=== PATIENT | female | born 1940 | race Caucasian/White ===

== ENCOUNTER → 2017-01-12 | Outpatient (CLI) | payer MEDICARE, OTHER ==
[~2017-01-12] VITALS: Ht 162.6 cm; Wt 53.5 kg
[~2017-01-12] MED LIST: ALBU8.5H IH; ALEN70TA48 PO; ATEN25 PO; AUD NEB; BENZ-26 PO; BUPR-47 PO; CENTRUM SILVER PO; CRAN500C3 PO; DABI75CA3 PO; DIVA250T45 PO; DSS100 PO; GABA-529 PO; LORA1TAB3 PO; MONT10TA21 PO; NITR100C PO; OMEP20 PO; PHEN50TA2 PO; PHENY100 PO; SOLI5 PO; TEMAZEPAM PO; TRAVZOS OU
[2017-01-12 11:08] VITALS: BP 125/58
== END | disposition home or self-care (01) ==
LOC: SRCNTR 11:03
PROVIDERS: ATTEND Internal Medicine Critical Care Medicine
DX: I10 Essential (primary) hypertension (principal); J44.1 Chronic obstructive pulmonary disease with (acute) exacerbation; R22.2 Localized swelling, mass and lump, trunk; F32.9 Major depressive disorder, single episode, unspecified; G40.101 Localization-related (focal) (partial) symptomatic epilepsy and epileptic syndromes with simple partial seizures, not intractable, with status epilepticus; C85.80 Other specified types of non-Hodgkin lymphoma, unspecified site; Z86.718 Personal history of other venous thrombosis and embolism; Z85.72 Personal history of non-Hodgkin lymphomas
CPT/HCPCS: G0463

== ENCOUNTER → 2017-05-13 | Outpatient (CLI) | payer MEDICARE, OTHER ==
[~2017-05-13] VITALS: Ht 162.6 cm; Wt 52.6 kg
[~2017-05-13] MED LIST changes: -PHEN50TA2 PO
[2017-05-13 12:36] VITALS: BP 112/75
== END | disposition home or self-care (01) ==
LOC: SRCNTR 12:17
PROVIDERS: ATTEND Internal Medicine Critical Care Medicine
DX: I10 Essential (primary) hypertension (principal); J44.1 Chronic obstructive pulmonary disease with (acute) exacerbation; F32.9 Major depressive disorder, single episode, unspecified; R22.2 Localized swelling, mass and lump, trunk; C85.80 Other specified types of non-Hodgkin lymphoma, unspecified site; G40.101 Localization-related (focal) (partial) symptomatic epilepsy and epileptic syndromes with simple partial seizures, not intractable, with status epilepticus; Z79.01 Long term (current) use of anticoagulants; E27.8 Other specified disorders of adrenal gland; Z85.72 Personal history of non-Hodgkin lymphomas
CPT/HCPCS: G0463

== ENCOUNTER → 2017-06-30 | Outpatient (CLI) | payer MEDICARE, OTHER ==
[~2017-06-30] VITALS: Ht 162.6 cm; Wt 53.5 kg
[~2017-06-30] MED LIST changes: -ALBU8.5H IH; +ALBU8.5H8 IH; -ATEN25 PO; +ATEN25TA PO; -BENZ-26 PO; +BENZ-51 PO
[2017-06-30 11:19] VITALS: BP 134/69
== END | disposition home or self-care (01) ==
LOC: SRCNTR 10:59
PROVIDERS: ATTEND Internal Medicine Critical Care Medicine
DX: I10 Essential (primary) hypertension (principal); C85.80 Other specified types of non-Hodgkin lymphoma, unspecified site; G40.101 Localization-related (focal) (partial) symptomatic epilepsy and epileptic syndromes with simple partial seizures, not intractable, with status epilepticus; F32.9 Major depressive disorder, single episode, unspecified; R22.2 Localized swelling, mass and lump, trunk; J44.1 Chronic obstructive pulmonary disease with (acute) exacerbation; Z88.0 Allergy status to penicillin
CPT/HCPCS: G0463

== ENCOUNTER → 2017-09-19 | Outpatient (CLI) | payer MEDICARE, OTHER ==
[~2017-09-19] VITALS: Ht 162.6 cm; Wt 53.0 kg
[2017-09-19 11:03] VITALS: BP 139/67
== END | disposition home or self-care (01) ==
LOC: SRCNTR 10:55
PROVIDERS: ATTEND Internal Medicine Critical Care Medicine
DX: J44.1 Chronic obstructive pulmonary disease with (acute) exacerbation (principal); I10 Essential (primary) hypertension; C85.80 Other specified types of non-Hodgkin lymphoma, unspecified site; G40.101 Localization-related (focal) (partial) symptomatic epilepsy and epileptic syndromes with simple partial seizures, not intractable, with status epilepticus; F32.9 Major depressive disorder, single episode, unspecified; R22.2 Localized swelling, mass and lump, trunk
CPT/HCPCS: G0463

== ENCOUNTER → 2017-11-24 | Outpatient (CLI) | payer MEDICARE, OTHER ==
[~2017-11-24] VITALS: Ht 162.6 cm; Wt 54.5 kg
[2017-11-24 11:02] VITALS: BP 137/66
== END | disposition home or self-care (01) ==
LOC: SRCNTR 10:52
PROVIDERS: ATTEND Internal Medicine Critical Care Medicine
DX: J44.1 Chronic obstructive pulmonary disease with (acute) exacerbation (principal); I10 Essential (primary) hypertension; F32.9 Major depressive disorder, single episode, unspecified; R22.2 Localized swelling, mass and lump, trunk; G40.101 Localization-related (focal) (partial) symptomatic epilepsy and epileptic syndromes with simple partial seizures, not intractable, with status epilepticus; C85.80 Other specified types of non-Hodgkin lymphoma, unspecified site; Z86.718 Personal history of other venous thrombosis and embolism
CPT/HCPCS: G0463

== ENCOUNTER → 2018-01-24 | Outpatient (CLI) | payer MEDICARE, OTHER ==
[~2018-01-24] VITALS: Ht 162.6 cm; Wt 54.0 kg
[2018-01-24 12:24] VITALS: BP 140/60
== END | disposition home or self-care (01) ==
LOC: SRCNTR 11:54
PROVIDERS: ATTEND Internal Medicine Critical Care Medicine
DX: J44.1 Chronic obstructive pulmonary disease with (acute) exacerbation (principal); I10 Essential (primary) hypertension; F32.9 Major depressive disorder, single episode, unspecified; C85.80 Other specified types of non-Hodgkin lymphoma, unspecified site; G40.101 Localization-related (focal) (partial) symptomatic epilepsy and epileptic syndromes with simple partial seizures, not intractable, with status epilepticus; R22.2 Localized swelling, mass and lump, trunk
CPT/HCPCS: G0463

== ENCOUNTER → 2019-10-03 | Outpatient (CLI) | payer MEDICARE, OTHER ==
[~2019-10-03] VITALS: Ht 162.6 cm; Wt 52.0 kg
[~2019-10-03] MED LIST changes: +ALEN70TA10 PO; -ALEN70TA48 PO; +AMIT25TA9 PO; +LORA-1000 PO; -LORA1TAB3 PO; +PHEN95TA44 PO; +TRAM50TA4 PO
[2019-10-03 10:25] VITALS: BP 131/87
== END | disposition home or self-care (01) ==
LOC: SRCNTR 10:24
PROVIDERS: ATTEND Internal Medicine Critical Care Medicine
DX: I10 Essential (primary) hypertension (principal); G40.909 Epilepsy, unspecified, not intractable, without status epilepticus; F32.9 Major depressive disorder, single episode, unspecified; Z85.79 Personal history of other malignant neoplasms of lymphoid, hematopoietic and related tissues; Z86.718 Personal history of other venous thrombosis and embolism; Z92.21 Personal history of antineoplastic chemotherapy
CPT/HCPCS: G0463

== ENCOUNTER → 2020-07-01 | Outpatient (CLI) | payer MEDICARE, OTHER ==
[~2020-07-01] VITALS: Ht 167.6 cm; Wt 54.4 kg
[~2020-07-01] MED LIST changes: -ALEN70TA10 PO; +ALEN70TA65 PO; +ATEN-73 PO; -ATEN25TA PO; -DABI75CA3 PO; +GABA-1216 PO; -GABA-529 PO; +MONT-35 PO; -MONT10TA21 PO
[2020-07-01 11:16] VITALS: BP 125/62
== END | disposition home or self-care (01) ==
LOC: SRCNTR 11:15
PROVIDERS: ATTEND Internal Medicine Critical Care Medicine
DX: C85.80 Other specified types of non-Hodgkin lymphoma, unspecified site (principal); G40.101 Localization-related (focal) (partial) symptomatic epilepsy and epileptic syndromes with simple partial seizures, not intractable, with status epilepticus; I10 Essential (primary) hypertension; F32.9 Major depressive disorder, single episode, unspecified; R22.2 Localized swelling, mass and lump, trunk; J44.1 Chronic obstructive pulmonary disease with (acute) exacerbation
CPT/HCPCS: G0463; Z7500

== ENCOUNTER → 2020-09-17 | Outpatient (CLI) | payer MEDICARE, OTHER ==
[~2020-09-17] VITALS: Ht 167.6 cm; Wt 57.0 kg
[2020-09-17 11:14] VITALS: BP 120/59
== END | disposition home or self-care (01) ==
LOC: SRCNTR 10:44
PROVIDERS: ATTEND Internal Medicine Critical Care Medicine
DX: C85.80 Other specified types of non-Hodgkin lymphoma, unspecified site (principal); G40.101 Localization-related (focal) (partial) symptomatic epilepsy and epileptic syndromes with simple partial seizures, not intractable, with status epilepticus; I10 Essential (primary) hypertension; J44.1 Chronic obstructive pulmonary disease with (acute) exacerbation; R22.2 Localized swelling, mass and lump, trunk; F32.9 Major depressive disorder, single episode, unspecified
CPT/HCPCS: G0463

== ENCOUNTER → 2021-01-29 | Outpatient (CLI) | payer MEDICARE, OTHER ==
[~2021-01-29] MED LIST changes: -BENZ-51 PO; +BENZ-70 PO; -BUPR-47 PO; +BUPR-49 PO
[2021-01-29 10:43] VITALS: BP 141/87
== END | disposition home or self-care (01) ==
LOC: SRCNTR 10:17
PROVIDERS: ATTEND Internal Medicine Critical Care Medicine
DX: C85.80 Other specified types of non-Hodgkin lymphoma, unspecified site (principal); G40.101 Localization-related (focal) (partial) symptomatic epilepsy and epileptic syndromes with simple partial seizures, not intractable, with status epilepticus; I10 Essential (primary) hypertension; F32.9 Major depressive disorder, single episode, unspecified; J44.1 Chronic obstructive pulmonary disease with (acute) exacerbation; R91.8 Other nonspecific abnormal finding of lung field; Z79.899 Other long term (current) drug therapy; Z88.0 Allergy status to penicillin; Z88.8 Allergy status to other drugs, medicaments and biological substances; Z98.890 Other specified postprocedural states
CPT/HCPCS: G0463; Z7500

== ENCOUNTER → 2021-05-19 | Outpatient (CLI) | payer MEDICARE ==
[~2021-05-19] VITALS: Ht 162.6 cm; Wt 55.2 kg
[~2021-05-19] MED LIST changes: +TRAV2.5D7 OU; -TRAVZOS OU
[2021-05-19 11:56] VITALS: BP 129/61
== END | disposition home or self-care (01) ==
LOC: SRCNTR 10:51
PROVIDERS: ATTEND Internal Medicine Critical Care Medicine
DX: C88.4 Extranodal marginal zone B-cell lymphoma of mucosa-associated lymphoid tissue [MALT-lymphoma] (principal); I10 Essential (primary) hypertension; J44.9 Chronic obstructive pulmonary disease, unspecified; R91.1 Solitary pulmonary nodule; F32.9 Major depressive disorder, single episode, unspecified
CPT/HCPCS: G0463

== ENCOUNTER → 2021-12-15 | Outpatient (CLI) | payer MEDICARE ==
[~2021-12-15] VITALS: Ht 165.1 cm; Wt 54.2 kg
[2021-12-15 11:26] VITALS: BP 137/55
== END | disposition home or self-care (01) ==
LOC: SRCNTR 10:37
PROVIDERS: ATTEND Internal Medicine Critical Care Medicine
DX: I10 Essential (primary) hypertension (principal); M54.50 Low back pain, unspecified; J44.1 Chronic obstructive pulmonary disease with (acute) exacerbation; F32.A Depression, unspecified; R91.8 Other nonspecific abnormal finding of lung field; R56.9 Unspecified convulsions; C88.4 Extranodal marginal zone B-cell lymphoma of mucosa-associated lymphoid tissue [MALT-lymphoma]
CPT/HCPCS: G0463

== ENCOUNTER → 2022-02-19 | Outpatient (CLI) | payer MEDICARE | END | disposition home or self-care (01) | LOC: SRCNTR 13:28 | PROVIDERS: ATTEND Internal Medicine Critical Care Medicine | DX: I10 Essential (primary) hypertension (principal); M54.50 Low back pain, unspecified; G40.909 Epilepsy, unspecified, not intractable, without status epilepticus; R91.8 Other nonspecific abnormal finding of lung field; J44.1 Chronic obstructive pulmonary disease with (acute) exacerbation; F32.A Depression, unspecified; C88.4 Extranodal marginal zone B-cell lymphoma of mucosa-associated lymphoid tissue [MALT-lymphoma] | CPT/HCPCS: Q3014 ==